=== PATIENT | male | born 1990 | race Caucasian/White ===

== ENCOUNTER 2019-10-15 18:47 | Emergency (ER) | payer OTHER ==
[2019-10-15 19:39] VITALS: TEMP 98.9; BMI 25.2
--- NOTE | 2019-10-15 19:40 | PDOC ---
Rapid Medical Evaluation Time Seen by Provider: 10/15/19 19:35 Medical Evaluation: 10/15/19 19:36 I have performed a brief in-person evaluation of this patient. The patient presents with a chief complaint of: CP w? hematemesis x 2 days. No change in BM, hemtochezia, melena, n/v/f/c. No h/o same. Drinks ETOH daily. No freg NSAID use Pertinent physical exam findings:Stable I have ordered the following: labs The patient will proceed to the ED for further evaluation Discharge Disposition - Diagnosis Hematemesis Qualifiers: Nausea presence: unspecified Qualified Code(s): K92.0 - Hematemesis - Referrals - Patient Instructions - Post Discharge Activity
--- NOTE | 2019-10-15 20:44 | PDOC ---
History of Present Illness - General Stated Complaint: CHESR PAIN/RADIATING TO L/ARM/VOMITING Time Seen by Provider: 10/15/19 19:35 History Source: Patient - History of Present Illness Initial Comments: 10/15/19 21:10 Mr. Ricketts is a 29 y/o man w/no PMH p/w three days of chest wall pain, nausea, headache. He reports that for the last 3 days he has had 8/10 pain across his entire L chest from the shoulder to the sternum. He reports that the pain began without apparent inciting event, he denies any falls, accidents, traumas. 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 He reports headache in the L side of his head, denies regular headaches or migraines in the past. He reports 3x non bloody diarrhea, 2x nbnb vomiting today, and reports spitting up a small amount of blood immediately afterwards. Past History - Past Medical History Allergies/Adverse Reactions: Allergies Allergy/AdvReac Type Severity Reaction Status Date / Time No Known Allergies Allergy Verified 10/15/19 19:39 COPD: No - Psycho Social/Smoking Cessation Hx Smoking History: Never smoked Have you smoked in the past 12 months: No Information on smoking cessation initiated: No Hx Alcohol Use: Yes Drug/Substance Use Hx: No Review of Systems - Review of Systems Able to Perform ROS?: Yes Comments:: 10/15/19 21:26 GENERAL/CONSTITUTIONAL: No fever or chills. No weakness. HEAD, EYES, EARS, NOSE AND THROAT: No change in vision. No ear pain or discharge. No sore throat. CARDIOVASCULAR: Chest pain. No shortness of breath RESPIRATORY: No cough, wheezing, or hemoptysis. GASTROINTESTINAL: Nausea, vomiting, diarrhea. No constipation. GENITOURINARY: No dysuria, frequency, or change in urination. MUSCULOSKELETAL: No joint or muscle swelling or pain. No neck or back pain. SKIN: No rash NEUROLOGIC: No headache, vertigo, loss of consciousness, or change in strength/sensation. ENDOCRINE: No increased thirst. No abnormal weight change HEMATOLOGIC/LYMPHATIC: No anemia, easy bleeding, or history of blood clots. ALLERGIC/IMMUNOLOGIC: No hives or skin allergy. *Physical Exam - Vital Signs Last Vital Signs Temp Pulse Resp BP Pulse Ox 98.9 F 80 18 117/83 100 10/15/19 19:35 10/15/19 19:35 10/15/19 19:35 10/15/19 19:35 10/15/19 19:35 - Physical Exam 10/15/19 21:28 GENERAL: Awake, alert, and fully oriented, in no acute distress HEAD: No signs of trauma, normocephalic, atraumatic EYES: PERRLA, EOMI, sclera anicteric, conjunctiva clear ENT: Auricles normal inspection, hearing grossly normal, nares patent, oropharynx clear without exudates. Moist mucosa NECK: Normal ROM, supple, no lymphadenopathy, JVD, or masses LUNGS: No distress, speaks full sentences, clear to auscultation bilaterally HEART: Chest wall tenderness. Regular rate and rhythm, normal S1 and S2, no m urmurs, rubs or gallops, peripheral pulses normal and equal bilaterally. ABDOMEN: Soft, nontender, normoactive bowel sounds. No guarding, no rebound. No masses EXTREMITIES : Normal inspection, Normal range of motion, no edema. No clubbing or cyanosis NEUROLOGICAL: Cranial nerves II through XII grossly intact. Normal speech, normal gait, no focal sensorimotor deficits SKIN: Warm, Dry, normal turgor, no rashes or lesions noted Heart Score/ECG Review - History History: Slightly suspicious - Electrocardiogram EKG: Normal - Age Age: </= 45 - Risk Factors Based on the list above the patient has:: No risk factors known - Troponin Troponin: </= normal limit - Score Heart Score - Total: 0 ED Treatment Course - LABORATORY CBC & Chemistry Diagram: 10/15/19 21:00 10/15/19 21:00 Medical Decision Making - Medical Decision Making 10/15/19 21:29 29M w/no PMH p/w three days of chest wall pain, N/V/D, headache. 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 Headache may represent subarachnoid hemorrhage given association with vomiting, although dehydration or uncomplicated headache also possible. Plan: CT head w/o contrast CBC CMP EKG CXR Troponin I PT/INR, APTT Ofirmev 1g Pepcid Reglan Maalox Dispo: Likely discharge Discharge - Discharge Information Problems reviewed: Yes Clinical Impression/Diagnosis: Non-cardiac chest pain Condition: Stable Disposition: HOME - Admission No - Follow up/Referral Referrals: [facility] [place] [Provider Group] - Patient Discharge Instructions Patient Printed Discharge Instructions: DI for Atypical Chest Pain Additional Instructions: Usted fue evaluado en la douglas de urgencias por dolor de pecho. Gardenia niveles de sameera, y ernandez escan del cerebro estaban normales. Por favor ve a ernandez doctor de cabezera lo mas pronto posible, in 2-3 cabrales. Es importante que ernandez doctor evalua a gardenia ira X - habian unos puntos que no parecen peligrosos en parveen momento ana paula deben de ser evaluado de nuevo. Regresa a la douglas de urgencias si empiezas a tener dificultad en respirar, fiebres altas, cambios de vision. Print Language: OMANI - Post Discharge Activity
--- NOTE | 2019-10-15 21:02 | PDOC ---
Attending Attestation - Resident Resident Name: DulcejohnelShady - ED Attending Attestation I have performed the following: I have examined & evaluated the patient, The case was reviewed & discussed with the resident, I agree w/resident's findings & plan - HPI HPI: 10/16/19 02:08 see resident hpi - Physicial Exam PE: 10/16/19 02:08 see resident exam - Medical Decision Making 10/16/19 02:08 29-year-old well-appearing male with reproducible left-sided chest pain with radiation into the neck and left side of the head Of intermittent left leg numbness only with ambulation which is not present at this time CT scan of the brain shows no acute abnormality Patient greatly improved after Tylenol Reglan Toradol and Decadron Will DC to follow-up with primary care
[2019-10-15] MEDS ORDERED: FAMOTIDINE 20 MG/50 ML IVPB 20 MG/50 ML MG IVPB ONE ×2 (21:09→21:35)
[2019-10-15] MEDS ORDERED: METOCLOPRAMIDE HCL INJECTION 10 MG/2 ML VIAL IVPUSH ONE (21:09)
[2019-10-15] MEDS ORDERED: ACETAMINOPHEN 1000 MG/100 ML VIAL (NON FORMULARY) IVPB ONE (21:09)
[2019-10-15] MEDS ORDERED: MAG HYDROX/AL HYDROX/SIMETH -MYLANTA- ORAL SUSPENSION PO ONE (21:09)
[2019-10-15 21:27] LABS: BASO % 2.9 % (0-2.0); EOS % 4.2 % (0-4.5); HEMATOCRIT 44.2 % (35.4-49); HEMOGLOBIN 15.3 GM/dL (11.7-16.9); LYMPH % 31.7 % (8-40); MCH 33.4 pg (25.7-33.7); MCHC 34.7 g/dl (32.0-35.9); MEAN CELL VOLUME 96.3 fl (80-96); MEAN PLT VOLUME 10.3 fl (7.5-11.1); MONO % 7.5 % (3.8-10.2); NEUT % 53.7 % (42.8-82.8); PLATELET COUNT 165 K/MM3 (134-434); RDW 14.1 % (11.9-15.9); WHITE BLOOD COUNT 9.4 K/mm3 (4.0-10.0)
[2019-10-15] MEDS ORDERED: ACETAMINOPHEN INJECTION 100 ML IVPB ONE (21:35)
[2019-10-15] MEDS ORDERED: METOCLOPRAMIDE HCL INJECTION 10 MG/2 ML VIAL ONE (21:35)
[2019-10-15] MEDS ORDERED: MAG HYDROX/AL HYDROX/SIMETH 30 ML UNIT-DOSE CUP ONE (21:35)
[2019-10-15 21:47] LABS: INR 1.12 (0.83-1.09); PROTHROMBIN TIME (PATIENT) 13.2 SEC (9.7-13.0)
[2019-10-15 22:09] LABS: ALBUMIN 4.1 g/dl (3.4-5.0); BILIRUBIN,TOTAL 0.3 mg/dL (0.2-1); CALCIUM 8.5 mg/dL (8.5-10.1); CREATININE 0.6 mg/dL (0.55-1.3); POTASSIUM 3.5 mmol/L (3.5-5.1); TOT PROT 8.7 g/dl (6.4-8.2)
[2019-10-15 22:21] LABS: BLOOD UREA NITROGEN 2.8 mg/dL (7-18)
[2019-10-16] MEDS ORDERED: KETOROLAC TROMETHAMINE 30 MG/1 ML VIAL IVPUSH ONE (00:55)
[2019-10-16] MEDS ORDERED: DEXAMETHASONE SOD PHOSPHATE 10 MG/1 ML VIAL IVPUSH ONE (00:55)
[2019-10-16] MEDS ORDERED: DEXAMETHASONE SOD PHOSPHATE 10 MG/1 ML VIAL ONE (01:53)
[2019-10-16] MEDS ORDERED: KETOROLAC TROMETHAMINE 30 MG/1 ML VIAL ONE (01:54)
[2019-10-16 02:33] VITALS: BP 128/72; PULSE 76
--- NOTE | 2019-10-16 11:00 | EKG ---
Test Reason : Blood Pressure : / mmHG Vent. Rate : 077 BPM Atrial Rate : 077 BPM P-R Int : 138 ms QRS Dur : 102 ms QT Int : 380 ms P-R-T Axes : 018 027 -02 degrees QTc Int : 430 ms NORMAL SINUS RHYTHM NORMAL ECG WHEN COMPARED WITH ECG OF 15-OCT-2019 18:56, NO SIGNIFICANT CHANGE WAS FOUND Confirmed by Bunny Lucia MD ([id number]) on 10/16/2019 11:00:23 AM Referred By: Confirmed By:Bunny Lucia MD
--- NOTE | 2019-10-17 11:14 | EKG ---
Test Reason : Blood Pressure : / mmHG Vent. Rate : 076 BPM Atrial Rate : 076 BPM P-R Int : 126 ms QRS Dur : 106 ms QT Int : 382 ms P-R-T Axes : 036 031 006 degrees QTc Int : 429 ms NORMAL SINUS RHYTHM INCOMPLETE RIGHT BUNDLE BRANCH BLOCK BORDERLINE ECG NO PREVIOUS ECGS AVAILABLE Confirmed by MD MURALI, RADHA ([id number]) on 10/17/2019 11:14:41 AM Referred By: Confirmed By:RADHA CARRION MD
== END 2019-10-16 02:10 | disposition home or self-care (01) ==
LOC: JER 18:47
PROC: 3E033GC Introduction of Other Therapeutic Substance into Peripheral Vein, Percutaneous Approach (ICD-10-PCS; principal; 2019-10-15)
PROC: 3E033NZ Introduction of Analgesics, Hypnotics, Sedatives into Peripheral Vein, Percutaneous Approach (ICD-10-PCS; 2019-10-15)
PROC: 3E0333Z Introduction of Anti-inflammatory into Peripheral Vein, Percutaneous Approach (ICD-10-PCS; 2019-10-15)
PROC: 3E0333Z Introduction of Anti-inflammatory into Peripheral Vein, Percutaneous Approach (ICD-10-PCS; 2019-10-15)
DX: R07.89 Other chest pain (principal)
CPT/HCPCS: 36415; 70450-TC; 71045-TC-FY; 71046-TC-FY; 80053; 83690; 84484; 85025; 85610; 85730; 86850; 86900; 86901; 93005; 93010; 96365; 96375; 99285-25; J0131; J1100

== ENCOUNTER 2020-11-08 11:49 | Inpatient (IN) | payer OTHER ==
[2020-11-08] MEDS ORDERED: ONDANSETRON 4 MG/2 ML VIAL IVPUSH ONE (12:35)
[2020-11-08] MEDS ORDERED: LORazepam 2 MG/ML SDV VIAL IVPUSH ONE (12:37)
[2020-11-08] MEDS ORDERED: LORazepam 2 MG/ML SDV VIAL ONE (12:58)
[2020-11-08] MEDS ORDERED: ONDANSETRON 4 MG/2 ML VIAL ONE (12:58)
[2020-11-08 14:09] LABS: BASO % 1.3 % (0-2.0); EOS % 1.2 % (0-4.5); HEMATOCRIT 39.2 % (35.4-49); HEMOGLOBIN 13.7 GM/dL (11.7-16.9); LYMPH % 10.2 % (8-40); MCH 35.3 pg (25.7-33.7); MEAN CELL VOLUME 100.6 fl (80-96); MEAN PLT VOLUME 10.3 fl (7.5-11.1); MONO % 13.4 % (3.8-10.2); NEUT % 73.9 % (42.8-82.8); PLATELET COUNT 84 K/MM3 (134-434); RBC 3.89 M/mm3 (4.00-5.60); RDW 14.9 % (11.9-15.9); WHITE BLOOD COUNT 11.1 K/mm3 (4.0-10.0)
[2020-11-08 14:19] LABS: INR 1.38 (0.83-1.09); PROTHROMBIN TIME (PATIENT) 16.6 SEC (9.7-13.0)
[2020-11-08 14:21] LABS: EPI CELLS 12 /uL (0-25.1); HYALINE CASTS 3 /uL (0-3.1); PH,URINE 8.5 (5.0-8.0); URINE APPEARANCE CLEAR; URINE BILIRUBIN 2+ (NEGATIVE); URINE COLOR ORANGE; URINE GLUCOSE (UA) NEGATIVE (NEGATIVE); URINE KETONE TRACE (NEGATIVE); URINE LEUK ESTERASE 1+ (NEGATIVE); URINE NITRITE POSITIVE (NEGATIVE); URINE PROTEIN 1+ (NEGATIVE); URINE RBC 7 /uL (0-23.9); URINE UROBILINOGEN 4.0 E.U/dl mg/dL (0.2-1.0); URINE WBC 20 /uL (0-25.8)
[2020-11-08 14:22] LABS: ACTIVATED PTT 39.1 SECONDS (25.2-36.5)
[2020-11-08] MEDS ORDERED: CEFTRIAXONE 1 GM in DEXTROSE 5%-WATER - 100 ML IVPB ONE (14:23)
[2020-11-08 14:30] LABS: CALCIUM 9.3 mg/dL (8.5-10.1); POTASSIUM 3.1 mmol/L (3.5-5.1)
[2020-11-08 14:31] LABS: ALBUMIN 3.5 g/dl (3.4-5.0)
[2020-11-08] MEDS ORDERED: MAGNESIUM SULF 50% (8.12 MEQ/2 ML-1 GM VIAL) IVPB ONE (14:33)
[2020-11-08] MEDS ORDERED: POTASSIUM CHLORIDE TABS 20 MEQ TABLET.ER (FP) PO ONE ×4 (14:33→19:18)
[2020-11-08 14:34] LABS: CREATININE 0.5 mg/dL (0.55-1.3)
[2020-11-08] MEDS ORDERED: FOLIC ACID INJECTION - 1 MG, THIAMINE HCL 100 MG, MULTIVIT INJECTION ADULT 10 ML in SOD... IVPB ONE (14:34)
[2020-11-08 14:36] LABS: BILIRUBIN,TOTAL 3.2 mg/dL (0.2-1); TOT PROT 9.3 g/dl (6.4-8.2)
[2020-11-08] MEDS ORDERED: CEFTRIAXONE 1 GM/50 ML BAG ONE (14:53)
[2020-11-08] MEDS ORDERED: MAGNESIUM 1GM/D5W - 1 GM/100 ML IVPB IVPB ONE (14:53)
[2020-11-08 14:58] LABS: MAGNESIUM 1.8 mg/dL (1.8-2.4)
[2020-11-08 15:41] LABS: URINE BACTERIA 25.8 /uL (0-1359)
[2020-11-08] MEDS ORDERED: MAG HYDROX/AL HYDROX/SIMETH 30 ML UNIT-DOSE CUP PO ONE (18:38)
[2020-11-08] MEDS ORDERED: FAMOTIDINE 20 MG/50 ML IVPB 20 MG/50 ML MG IVPB ONE ×2 (18:38→19:18)
[2020-11-08] MEDS ORDERED: MAG HYDROX/AL HYDROX/SIMETH 30 ML UNIT-DOSE CUP ONE (19:18)
[2020-11-08] MEDS ORDERED: ACETAMINOPHEN 325 MG TABLET (FP) PO PRN (20:56)
[2020-11-08] MEDS ORDERED: CEFTRIAXONE 1,000 MG in DEXTROSE 5%-WATER - 50 ML IVPB ONE (21:03)
[2020-11-08] MEDS ORDERED: LORazepam 1 MG TABLET PO PRN (21:18)
[2020-11-08] MEDS: FOLIC ACID INJECTION - 1 MG, THIAMINE HCL 100 MG, MULTIVIT INJECTION ADULT 10 ML in SOD... IVPB ONE (22:38)
[2020-11-08] MEDS: CYANOCOBALAMIN (VITAMIN B-12) 100 MCG TABLET PO SCH (22:38)
[2020-11-08] MEDS ORDERED: PANTOPRAZOLE 40 MG TABLET ONE (22:39)
[2020-11-08] MEDS ORDERED: LORazepam 1 MG TABLET ONE (22:40)
[2020-11-08] MEDS: LORazepam 1 MG TABLET PO SCH (22:48)
[2020-11-08] MEDS: PANTOPRAZOLE 40 MG TABLET PO SCH (22:48)
[2020-11-09 01:33] VITALS: BMI 25.0
[2020-11-09] MEDS: LORazepam 1 MG TABLET PO SCH ×4 (04:58→22:24)
[2020-11-09] MEDS: FOLIC ACID INJECTION - 1 MG, THIAMINE HCL 100 MG, MULTIVIT INJECTION ADULT 10 ML in SOD... IVPB ONE (05:08)
[2020-11-09 06:38] LABS: BASO % 2.2 % (0-2.0); EOS % 5.7 % (0-4.5); HEMATOCRIT 39.2 % (35.4-49); HEMOGLOBIN 13.6 GM/dL (11.7-16.9); LYMPH % 14.4 % (8-40); MCH 35.4 pg (25.7-33.7); MCHC 34.6 g/dl (32.0-35.9); MEAN CELL VOLUME 102.2 fl (80-96); MEAN PLT VOLUME 10.7 fl (7.5-11.1); MONO % 13.2 % (3.8-10.2); NEUT % 64.5 % (42.8-82.8); PLATELET COUNT 75 K/MM3 (134-434); RBC 3.83 M/mm3 (4.00-5.60); RDW 14.6 % (11.9-15.9); WHITE BLOOD COUNT 9.1 K/mm3 (4.0-10.0)
[2020-11-09 06:47] LABS: INR 1.44 (0.83-1.09); PROTHROMBIN TIME (PATIENT) 17.2 SEC (9.7-13.0)
[2020-11-09 06:51] LABS: POTASSIUM 3.7 mmol/L (3.5-5.1)
[2020-11-09 06:55] LABS: ALBUMIN 3.2 g/dl (3.4-5.0); MAGNESIUM 1.9 mg/dL (1.8-2.4)
[2020-11-09 06:56] LABS: BLOOD UREA NITROGEN 4.2 mg/dL (7-18); CALCIUM 8.6 mg/dL (8.5-10.1)
[2020-11-09 06:58] LABS: CREATININE 0.5 mg/dL (0.55-1.3)
[2020-11-09 06:59] LABS: PHOSPHOROUS 3.1 mg/dL (2.5-4.9)
[2020-11-09 07:00] LABS: TOT PROT 8.5 g/dl (6.4-8.2)
[2020-11-09 07:01] LABS: BILIRUBIN,TOTAL 2.9 mg/dL (0.2-1)
[2020-11-09] MEDS ORDERED: DEXTROSE 5%-WATER - 50 ML IVPB ONE (09:26)
[2020-11-09] MEDS ORDERED: cefTRIAXone SODIUM 1 GM VIAL ONE (09:26)
[2020-11-09] MEDS: PANTOPRAZOLE 40 MG TABLET PO SCH ×2 (09:51→22:24)
[2020-11-09] MEDS: CEFTRIAXONE 1 GM in DEXTROSE 5%-WATER - 50 ML IVPB SCH (09:51)
[2020-11-09] MEDS ORDERED: CEFTRIAXONE 1,000 MG in DEXTROSE 5%-WATER - 50 ML IVPB SCH (10:00)
[2020-11-09] MEDS ORDERED: PT OWN MED DRAWER 7, Y5N ONE (12:26)
[2020-11-09] MEDS: CYANOCOBALAMIN (VITAMIN B-12) 100 MCG TABLET PO SCH (13:45)
[2020-11-09] MEDS ORDERED: PHYTONADIONE 10 MG/1 ML AMP IVPB ONE (14:08)
[2020-11-10] MEDS: LORazepam 1 MG TABLET PO SCH ×4 (04:48→22:25)
[2020-11-10 08:15] LABS: BASO % 1.5 % (0-2.0); EOS % 5.1 % (0-4.5); HEMATOCRIT 40.9 % (35.4-49); HEMOGLOBIN 14.4 GM/dL (11.7-16.9); LYMPH % 18.3 % (8-40); MCH 35.9 pg (25.7-33.7); MCHC 35.1 g/dl (32.0-35.9); MEAN CELL VOLUME 102.2 fl (80-96); MONO % 12.9 % (3.8-10.2); NEUT % 62.2 % (42.8-82.8); PLATELET COUNT 87 K/MM3 (134-434); RDW 14.9 % (11.9-15.9); WHITE BLOOD COUNT 10.4 K/mm3 (4.0-10.0)
[2020-11-10 08:29] LABS: POTASSIUM 3.8 mmol/L (3.5-5.1)
[2020-11-10 08:35] LABS: ALBUMIN 3.4 g/dl (3.4-5.0)
[2020-11-10 08:37] LABS: ALBUMIN 3.4 g/dl (3.4-5.0); BILIRUBIN,DIRECT 1.6 mg/dL (0.0-0.2); BLOOD UREA NITROGEN 7.8 mg/dL (7-18)
[2020-11-10 08:38] LABS: CALCIUM 8.5 mg/dL (8.5-10.1)
[2020-11-10 08:39] LABS: BILIRUBIN,TOTAL 2.8 mg/dL (0.2-1); MAGNESIUM 2.3 mg/dL (1.8-2.4)
[2020-11-10 08:41] LABS: CREATININE 0.6 mg/dL (0.55-1.3); PHOSPHOROUS 4.1 mg/dL (2.5-4.9)
[2020-11-10 08:43] LABS: BILIRUBIN,TOTAL 2.5 mg/dL (0.2-1)
[2020-11-10] MEDS ORDERED: cefTRIAXone SODIUM 1 GM VIAL ONE (08:53)
[2020-11-10] MEDS ORDERED: DEXTROSE 5%-WATER - 50 ML IVPB ONE (08:53)
[2020-11-10] MEDS: CYANOCOBALAMIN (VITAMIN B-12) 100 MCG TABLET PO SCH (09:04)
[2020-11-10] MEDS: PANTOPRAZOLE 40 MG TABLET PO SCH ×2 (09:04→22:25)
[2020-11-10] MEDS: CEFTRIAXONE 1 GM in DEXTROSE 5%-WATER - 50 ML IVPB SCH (09:04)
[2020-11-10] MEDS ORDERED: LORazepam 2 MG/ML SDV VIAL IVPUSH ONE (11:00)
[2020-11-10] MEDS ORDERED: LORazepam 1 MG TABLET PO PRN (13:32)
[2020-11-10] MEDS ORDERED: ACETAMINOPHEN 325 MG TABLET (FP) PO PRN (13:32)
[2020-11-11] MEDS ORDERED: LORazepam 0.5 MG TABLET PO PRN ×2
[2020-11-11] MEDS ORDERED: LORazepam 0.5 MG TABLET PO SCH (05:00)
[2020-11-11] MEDS: LORazepam 1 MG TABLET PO SCH ×2 (05:40→10:05)
[2020-11-11] MEDS: LORazepam 0.5 MG TABLET PO SCH ×4 (05:42→22:31)
[2020-11-11 08:47] LABS: BASO % 1.5 % (0-2.0); EOS % 4.5 % (0-4.5); HEMATOCRIT 42.4 % (35.4-49); HEMOGLOBIN 14.9 GM/dL (11.7-16.9); LYMPH % 18.5 % (8-40); MCH 35.8 pg (25.7-33.7); MCHC 35.1 g/dl (32.0-35.9); MEAN PLT VOLUME 10.7 fl (7.5-11.1); MONO % 11.3 % (3.8-10.2); NEUT % 64.2 % (42.8-82.8); PLATELET COUNT 95 K/MM3 (134-434); RBC 4.16 M/mm3 (4.00-5.60); RDW 15.1 % (11.9-15.9); WHITE BLOOD COUNT 10.9 K/mm3 (4.0-10.0)
[2020-11-11 09:16] LABS: POTASSIUM 3.7 mmol/L (3.5-5.1)
[2020-11-11 09:26] LABS: BLOOD UREA NITROGEN 10.4 mg/dL (7-18); CALCIUM 8.8 mg/dL (8.5-10.1)
[2020-11-11 09:27] LABS: ALBUMIN 3.5 g/dl (3.4-5.0); BILIRUBIN,DIRECT 1.7 mg/dL (0.0-0.2)
[2020-11-11 09:30] LABS: CREATININE 0.5 mg/dL (0.55-1.3)
[2020-11-11 09:31] LABS: BILIRUBIN,TOTAL 2.8 mg/dL (0.2-1); TOT PROT 9.2 g/dl (6.4-8.2)
[2020-11-11] MEDS ORDERED: DEXTROSE 5%-WATER - 50 ML IVPB ONE (09:50)
[2020-11-11] MEDS ORDERED: cefTRIAXone SODIUM 1 GM VIAL ONE (09:50)
[2020-11-11] MEDS: CYANOCOBALAMIN (VITAMIN B-12) 100 MCG TABLET PO SCH (10:04)
[2020-11-11] MEDS: PANTOPRAZOLE 40 MG TABLET PO SCH (10:05)
[2020-11-11] MEDS: CEFTRIAXONE 1 GM in DEXTROSE 5%-WATER - 50 ML IVPB SCH (10:06)
[2020-11-11 13:08] LABS: TRANSGLUTAMINASE IGA < 2 U/mL (0-3); TRANSGLUTAMINASE IGG 14 U/mL (0-5)
[2020-11-11 14:07] LABS: HEP B CORE AB, TOT Negative (Negative)
[2020-11-12] MEDS ORDERED: LORazepam 0.5 MG TABLET PO ONE ×2 (05:00)
[2020-11-12 08:10] LABS: HEMATOCRIT 41.3 % (35.4-49); HEMOGLOBIN 14.1 GM/dL (11.7-16.9); MCH 35.5 pg (25.7-33.7); MCHC 34.1 g/dl (32.0-35.9); MEAN CELL VOLUME 104.1 fl (80-96); MEAN PLT VOLUME 10.2 fl (7.5-11.1); PLATELET COUNT 89 K/MM3 (134-434); RBC 3.97 M/mm3 (4.00-5.60); RDW 15.1 % (11.9-15.9); WHITE BLOOD COUNT 9.4 K/mm3 (4.0-10.0)
[2020-11-12 08:17] LABS: POTASSIUM 3.9 mmol/L (3.5-5.1)
[2020-11-12 08:19] LABS: ALBUMIN 3.4 g/dl (3.4-5.0); CALCIUM 8.8 mg/dL (8.5-10.1)
[2020-11-12 08:20] LABS: MAGNESIUM 2.1 mg/dL (1.8-2.4)
[2020-11-12 08:22] LABS: BILIRUBIN,DIRECT 1.4 mg/dL (0.0-0.2)
[2020-11-12 08:23] LABS: CREATININE 0.6 mg/dL (0.55-1.3); PHOSPHOROUS 4.3 mg/dL (2.5-4.9)
[2020-11-12 08:24] LABS: BILIRUBIN,TOTAL 2.5 mg/dL (0.2-1); TOT PROT 8.7 g/dl (6.4-8.2)
[2020-11-12] MEDS ORDERED: cefTRIAXone SODIUM 1 GM VIAL ONE (09:32)
[2020-11-12] MEDS ORDERED: DEXTROSE 5%-WATER - 50 ML IVPB ONE (09:33)
[2020-11-12] MEDS: CYANOCOBALAMIN (VITAMIN B-12) 100 MCG TABLET PO SCH (09:35)
[2020-11-12] MEDS: CEFTRIAXONE 1 GM in DEXTROSE 5%-WATER - 50 ML IVPB SCH (09:36)
[2020-11-12] MEDS ORDERED: PANTOPRAZOLE 20 MG TABLET PO SCH (10:00)
[2020-11-12 14:35] VITALS: BP 129/79; PULSE 97; TEMP 98.9
== END 2020-11-12 19:25 | disposition home or self-care (01) | DRG 241 ==
LOC: JER 11:49 → JERBED 14:38 → J4W 11-09 01:01 → J7W 11-10 13:02
PROVIDERS: ADMIT Family Medicine; ATTEND Internal Medicine
PROC: 0DB68ZX Excision of Stomach, Via Natural or Artificial Opening Endoscopic, Diagnostic (ICD-10-PCS; principal; 2020-11-10 13:30)
DX: K29.21 Alcoholic gastritis with bleeding (principal); D69.6 Thrombocytopenia, unspecified; R16.2 Hepatomegaly with splenomegaly, not elsewhere classified; N39.0 Urinary tract infection, site not specified; K76.0 Fatty (change of) liver, not elsewhere classified; F10.230 Alcohol dependence with withdrawal, uncomplicated; K70.10 Alcoholic hepatitis without ascites; K92.0 Hematemesis; R07.89 Other chest pain; R74.8 Abnormal levels of other serum enzymes
CPT/HCPCS: 36415; 71045-TC-FY; 74177-TC; 76705-TC; 80053; 80061; 80074; 80076; 81003; 82728; 83516; 83540; 83550; 83690; 83721; 83735; 84100; 84484; 85025; 85027; 85610; 85730; 86038; 86704; 86706; 86707; 86708; 86709; 86780; 86850; 86900; 86901; 87086; 87340; 87491; 87536; 87591; 88305-TC; 93005; 93010; 99285-25; C9803; Q9967; U0003; U0005